=== PATIENT | female | born 1960 | race African-American/Black ===

== ENCOUNTER 2018-02-18 05:29 | Day surgery (SDC) | payer OTHER ==
[2018-02-17 16:38] VITALS: BMI 27.3
--- NOTE | 2018-02-18 08:14 | HP ---
History & Physical Update - Physical Physical: No Change - Assessment Assessment: No Change - Plan Plan: No Change
[2018-02-18] MEDS ORDERED: MIDAZOLAM HCL 2 MG/2 ML SINGLE DOSE VIAL ONE (09:02)
[2018-02-18] MEDS ORDERED: PROPOFOL 20 ML ONE (09:02)
[2018-02-18] MEDS ORDERED: oxyCODONE HCL 5 MG TABLET PO PRN ×3 (09:12→10:33)
[2018-02-18] MEDS ORDERED: ONDANSETRON 4 MG/2 ML VIAL IVPUSH PRN ×2 (09:12→10:33)
[2018-02-18] MEDS ORDERED: LACTATED RINGERS SOLUTION 1,000 ML IV SCH (09:15)
--- NOTE | 2018-02-18 09:19 | HP ---
Past Medical History - Primary Care Physician PCP:: Marin Miller - Admission Chief Complaint: fibroid uterus, submucos myoma, postmenopausal vaginal bleeding History of Present Illness: 57 yo f with hx of multiple myoma and PMB , sono possible submucos myoma, admitted for hysteroscopy D&C , possible submucos myomectomy, rba to procedure discussed History Source: Patient Limitations to Obtaining History: No Limitations - Past Medical History Cardiovascular: Yes: Hyperlipdemia - Past Surgical History Hx Myomectomy: No Hx Transabdominal Cerclage: No - Smoking History Smoking history: Never smoked - Alcohol/Substance Use Hx Alcohol Use: No - Social History History of Recent Travel: No Home Medications - Allergies Allergies/Adverse Reactions: Allergies Allergy/AdvReac Type Severity Reaction Status Date / Time No Known Allergies Allergy Verified 02/18/18 07:58 - Home Medications Home Medications: Ambulatory Orders Ascorbic Acid [Vitamin C] 1,000 mg PO DAILY 02/17/18 Simvastatin [Zocor -] 20 mg PO HS 02/17/18 Ibuprofen [Motrin -] 600 mg PO QID #28 tablet 02/18/18 Review of Systems - Review of Systems Constitutional: reports: No Symptoms Eyes: reports: No Symptoms HENT: reports: No Symptoms Neck: reports: No Symptoms Cardiovascular: reports: No Symptoms Respiratory: reports: No Symptoms Gastrointestinal: reports: No Symptoms Genitourinary: reports: No Symptoms Breasts: reports: No Symptoms Reported Musculoskeletal: reports: No Symptoms Integumentary: reports: No Symptoms Neurological: reports: No Symptoms Endocrine: reports: No Symptoms Hematology/Lymphatic: reports: No Symptoms Psychiatric: reports: No Symptoms Physical Exam-BAR[facility] [employer]ENER Vital Signs: Vital Signs Temperature 98.1 F 02/18/18 07:48 Pulse Rate 64 02/18/18 07:48 Respiratory Rate 18 02/18/18 07:48 Blood Pressure 133/92 02/18/18 07:48 O2 Sat by Pulse Oximetry (%) 100 02/18/18 07:50 Constitutional: Yes: Well Nourished, No Distress, Calm Eyes: Yes: WNL, Conjunctiva Clear, EOM Intact HENT: Yes: WNL, Atraumatic, Normocephalic Neck: Yes: WNL, Supple, Trachea Midline Cardiovascular: Yes: WNL, Regular Rate and Rhythm Respiratory: Yes: WNL, Regular, CTA Bilaterally Gastrointestinal: Yes: WNL ...Rectal Exam: Yes: WNL Renal/: Yes: WNL Pelvis: Yes: WNL External Genitalia: Yes: Normal Vaginal Exam: Yes: Normal Cervix: Yes: Normal Uterus: Yes: Enlarged Adnexa: Not Palpable: Left, Right Breast(s): Yes: WNL Musculoskeletal: Yes: WNL Extremities: Yes: WNL Edema: No Integumentary: Yes: WNL Neurological: Yes: WNL, Alert, Oriented ...Motor Strength: WNL Psychiatric: Yes: WNL, Alert, Oriented Problem List - Problem (1) Submucous myoma of uterus Code(s): D25.0 - SUBMUCOUS LEIOMYOMA OF UTERUS (2) Postmenopausal vaginal bleeding Code(s): N95.0 - POSTMENOPAUSAL BLEEDING Assessment/Plan hysteroscopy D&C , possible submucos myoma resection
[2018-02-18] MEDS ORDERED: IBUPROFEN 800 MG/8 ML IJ IVPB PRN (10:33)
[2018-02-18] MEDS ORDERED: IBUPROFEN 600 MG TABLET (FP) PO PRN (10:33)
[2018-02-18] MEDS ORDERED: ELECTROLYTE-148 SOLN 1,000 ML IV SCH (10:45)
[2018-02-18 11:26] VITALS: TEMP 98
[2018-02-18 13:07] VITALS: BP 142/75; PULSE 73
--- NOTE | 2018-02-19 17:05 | PATH ---
Surgical Pathology Report Patient Name: NICKY KOTHARI [facility]. Rec. #: [id number] /Age/Gender: 1960 (Age: 57) / F Account: [id number] Location: [facility] SURGICAL Taken: 02/18/2018 Received: 02/18/2018 Reported: 02/19/2018 Physicians: Marin Miller M.D. Specimen(s) Received A: CERVICAL POLYP B: ENDOMETRIAL POLYP Clinical History Postmenopausal bleeding Final Diagnosis A. CERVICAL POLYP, HYSTEROSCOPIC DILATION AND CURETTAGE AND REMOVAL: ABUNDANT MUCOID MATERIAL, SCANT ENDOCERVICAL TISSUE, AGGREGATES OF NEUTROPHILS, AND DEBRIS. B. ENDOMETRIAL POLYP, BIOPSY: ABUNDANT SQUAMOUS CERVICAL TISSUE, RARE ENDOCERVICAL GLANDS, AND FIBROUS STROMA ADMIXED WITH BLOOD. NO ENDOMETRIAL GLANDS IDENTIFIED. Electronically Signed Sowmya Ordonez M.D. Gross Description A. Received in formalin labeled "cervical polyp," is a 1.6 x 1.2 x 0.3 cm aggregate of villegas-red soft tissue fragments admixed with mucus. The formalin is filtered and the specimen is entirely submitted in one cassette. B. Received in formalin labeled "endometrial polyp," is a 0.5 x 0.4 x 0.1 cm aggregate of villegas red soft tissue fragments. The formalin is filtered and the specimen is entirely submitted in one cassette. 02/18/201802/18/2018
--- NOTE | 2018-02-26 16:04 | OP ---
DATE OF OPERATION: 02/18/2018 PREOPERATIVE DIAGNOSIS: Postmenopausal bleeding, fibroid uterus. POSTOPERATIVE DIAGNOSIS: Postmenopausal bleeding, fibroid uterus. PROCEDURE PERFORMED: Removal of endometrial polyp, hysteroscopy, dilatation and curettage. SURGEON: Marin Miller MD ANESTHESIA: General. ESTIMATED BLOOD LOSS: Minimal. DESCRIPTION OF PROCEDURE: The patient was taken to the operating room and had adequate general anesthesia in the dorsal lithotomy position. Examination under anesthesia revealed the external genitalia to be normal. The uterus was retroverted, with multiple myomas. The adnexa were not palpable. The cervix was stenotic. The anterior lip of the cervix was grasped with a single-tooth tenaculum. The endometrial polyp with mucoid material was removed from the os. The os was stenotic and difficult to visualize the ostium. The cervical os was probed several times to find the endocervix. Unable to find the endocervical canal. Then, with the hysteroscope, direct visualization, tried to get inside the uterus. The hysteroscope could not be advanced more than 4 cm. The tubal ostia were not visualized and the fundus was not well seen because of difficulties with entering into the uterine cavity. At this time the hysteroscopy procedure was terminated. Then endometrial sampling and curetting were done. Minimal tissue was obtained. The patient tolerated the procedure well, and left the OR in good condition. MARIN MILLER M.D. /[id number]
== END 2018-02-18 13:08 | disposition home or self-care (01) ==
LOC: JASU-SURG 05:29
PROVIDERS: ATTEND Obstetrics & Gynecology
PROC: 0UB98ZX Excision of Uterus, Via Natural or Artificial Opening Endoscopic, Diagnostic (ICD-10-PCS; principal; 2018-02-18 09:00)
PROC: 0UDB7ZX Extraction of Endometrium, Via Natural or Artificial Opening, Diagnostic (ICD-10-PCS; 2018-02-18 09:00)
DX: N95.0 Postmenopausal bleeding (principal); D25.0 Submucous leiomyoma of uterus; N84.0 Polyp of corpus uteri
CPT/HCPCS: 88305-TC; 94760

== ENCOUNTER 2019-04-14 10:49 | Day surgery (SDC) | payer OTHER ==
[2019-04-13 15:21] VITALS: BMI 27.8
[2019-04-14] MEDS ORDERED: PROPOFOL 20 ML ONE ×2 (12:53→13:24)
[2019-04-14] MEDS ORDERED: KETOROLAC TROMETHAMINE 30 MG/1 ML VIAL ONE (12:53)
[2019-04-14] MEDS ORDERED: DEXAMETHASONE SOD PHOSPHATE 4 MG/1 ML VIAL ONE ×2 (12:53→12:56)
[2019-04-14] MEDS ORDERED: MIDAZOLAM HCL 2 MG/2 ML SINGLE DOSE VIAL ONE (12:53)
[2019-04-14] MEDS ORDERED: LIDOCAINE 1%-EPI 1:100,000 30 ML MDV IJ ONE (13:14)
[2019-04-14] MEDS ORDERED: LIDOCAINE HCL 1%, 10 MG/ML (20ML VIAL) ONE (13:24)
[2019-04-14] MEDS ORDERED: ceFAZolin SODIUM 1 GM VIAL IVPB ONE (13:30)
[2019-04-14] MEDS ORDERED: LIDOCAINE HCL 1%, 10 MG/ML (20ML VIAL) INF ONE ×2 (13:33)
[2019-04-14 16:25] VITALS: BP 127/65; PULSE 71; TEMP 98.2
--- NOTE | 2019-04-14 18:15 | OP ---
DATE OF OPERATION: 04/14/2019 PREOPERATIVE DIAGNOSIS: Atypical glandular cells of undetermined significance on Pap smear and stenotic cervical os. POSTOPERATIVE DIAGNOSIS: Atypical glandular cells of undetermined significance on Pap smear and stenotic cervical os. PROCEDURE: Dilation and curettage, hysteroscopy. SURGEON: Love Martinez MD ANESTHESIA: Moderate sedation and local. ESTIMATED BLOOD LOSS: 20 mL. COMPLICATIONS: None. INDICATIONS: This is a 58-year-old with history of atypical glandular cells on Pap smear. Colposcopy biopsies were negative. HPV was negative. The os on exam was noted to be markedly stenotic, and she had adhesions in the anterior vaginal apex with a very flush cervix. Patient was counseled regarding surgical management for endometrial sampling. Risks, benefits, indications, alternatives were discussed with the patient. All questions were answered. Informed consent was signed. FINDINGS: Atrophic vagina. Cervix entirely flush with the vagina, and cervical os not easily visible. There were adhesions at the top of the vagina/cervix. Uterus approximately 6 weeks' size. DESCRIPTION OF PROCEDURE: The patient was taken to the operating room. Placed in the dorsal supine position. Moderate sedation was achieved. She was placed in the dorsal lithotomy position in Rosalio stirrups and was prepped and draped in normal sterile fashion. Speculum was placed in the vagina. Cervix was infiltrated with 10 mL of 1% lidocaine at 12, 4, and 7 o'clock. Cervix was grasped anteriorly with a single-tooth tenaculum, but due to the very markedly flush cervix, this was very difficult; therefore, it was held at approximately 9 o'clock on the vagina to help barbara the cervix. The cervix was puckered in and very flush, in fact, os could not be visualized, but with gentle probing with the sound, an opening was able to be seen and palpated. Using the dilators, we were able to dilate to only approximately 4 cm. The 30-degree hysteroscope was advanced while instilling normal saline. We could see that we were in the endocervical cavity but could not advance into the endometrial cavity. At this point, the hysteroscope was withdrawn, and gentle endocervical/endometrial curettings were obtained; however, I did not feel that we were in the endometrial cavity. Likely, the specimen was just the endocervical curetting. The hysteroscope was removed. Silver nitrate was applied to the cervix/vagina where the single-tooth tenaculum was applied. Excellent hemostasis was seen. All instruments were removed from the patient's vagina. Sponge and instrument counts were correct x2. The patient was awakened and transferred in a stable condition to the PACU. Love Martinez M.D. VALERIA/[id number]
--- NOTE | 2019-04-16 17:20 | PATH ---
Surgical Pathology Report Patient Name: NICKY KOTHARI [facility]. Rec. #: [id number] /Age/Gender: 1960 (Age: 58) / F Account: [id number] Location: [facility] SURGICAL Taken: 04/14/2019 Received: 04/15/2019 Reported: 04/16/2019 Physicians: Love Martinez MD Specimen(s) Received ENDOCERVICAL CURETTINGS AND ENDOMETRIAL CURETTINGS Clinical History Atypical glandular cells on Pap smear, stenotic cervix Final Diagnosis ENDOCERVICAL/ENDOMETRIAL CURETTINGS: MINUTE SQUAMOUS EPITHELIUM AND ENDOCERVICAL CELLS. NO ENDOMETRIAL TISSUE PRESENT. Comment: Multiple serial H&E stained levels have been examined. Electronically Signed Deny Daniel M.D. Gross Description Received in formalin labeled "endocervical/endometrial curettings," is a 0.1 x 0.1 x 0.1 cm aggregate of villegas-brown soft tissue fragments. The formalin is filtered and the specimen is entirely submitted in one cassette. /04/15/2019 saudi/04/15/2019
== END 2019-04-14 16:30 | disposition home or self-care (01) ==
LOC: JASU-SURG 10:49
PROVIDERS: ATTEND Obstetrics & Gynecology Gynecologic Oncology
PROC: 0UDB7ZX Extraction of Endometrium, Via Natural or Artificial Opening, Diagnostic (ICD-10-PCS; principal; 2019-04-14 13:20)
PROC: 0UJD8ZZ Inspection of Uterus and Cervix, Via Natural or Artificial Opening Endoscopic (ICD-10-PCS; 2019-04-14 13:20)
DX: R87.618 Other abnormal cytological findings on specimens from cervix uteri (principal)
CPT/HCPCS: 86850; 86900; 86901; 94760

== ENCOUNTER 2020-05-10 04:18 | Inpatient (IN) | payer OTHER ==
[2020-05-09 08:52] VITALS: BMI 27.4
[2020-05-10] MEDS ORDERED: MIDAZOLAM HCL 2 MG/2 ML SINGLE DOSE VIAL ONE ×2 (08:03)
[2020-05-10] MEDS ORDERED: DEXAMETHASONE SOD PHOSPHATE 4 MG/1 ML VIAL ONE (08:57)
[2020-05-10] MEDS ORDERED: fentaNYL CITRATE 250 MCG/5 ML VIAL ONE (08:57)
[2020-05-10] MEDS ORDERED: ONDANSETRON 4 MG/2 ML VIAL ONE (08:57)
[2020-05-10] MEDS ORDERED: LIDOCAINE HCL/PF 2% SDV 5ML VIAL ONE (08:57)
[2020-05-10] MEDS ORDERED: PROPOFOL 20 ML ONE (08:58)
[2020-05-10] MEDS ORDERED: ROCURONIUM BROMIDE 50 MG/5 ML SYRINGE ONE (08:58)
[2020-05-10] MEDS ORDERED: ceFAZolin SODIUM 1 GM VIAL ONE (09:29)
[2020-05-10] MEDS ORDERED: ceFAZolin SODIUM 1 GM VIAL IVPB ONE (09:31)
[2020-05-10] MEDS ORDERED: HYDROmorphone HCl 2 MG/ML VIAL ONE (09:58)
[2020-05-10] MEDS ORDERED: KETOROLAC TROMETHAMINE 30 MG/1 ML VIAL ONE (10:52)
[2020-05-10] MEDS ORDERED: NEOSTIGMINE METHYLSULFATE 0.5 MG/1 ML - 10 ML MDV ONE (10:52)
[2020-05-10] MEDS ORDERED: GLYCOPYRROLATE 0.2 MG/1 ML VIAL ONE (10:52)
[2020-05-10] MEDS ORDERED: IBUPROFEN 800 MG/8 ML IJ IVPB PRN (11:39)
[2020-05-10] MEDS ORDERED: IBUPROFEN 600 MG TABLET (FP) PO PRN (11:39)
[2020-05-10] MEDS ORDERED: oxyCODONE HCL 5 MG TABLET PO PRN ×2 (11:39→11:43)
[2020-05-10] MEDS ORDERED: ONDANSETRON 4 MG/2 ML VIAL IVPUSH PRN (11:39)
[2020-05-10] MEDS ORDERED: ACETAMINOPHEN 325 MG TABLET (FP) PO PRN (11:42)
[2020-05-10] MEDS ORDERED: LACTATED RINGERS SOLUTION 1,000 ML IV SCH (12:00)
[2020-05-10] MEDS: ELECTROLYTE-148 SOLN 1,000 ML IV SCH (17:33)
[2020-05-10] MEDS: CEFAZOLIN 2 GM/D5W 2 GM/50 ML ML IVPB SCH (17:41)
[2020-05-11] MEDS: CEFAZOLIN 2 GM/D5W 2 GM/50 ML ML IVPB SCH ×2 (01:29→09:01)
[2020-05-11 07:31] LABS: HEMATOCRIT 37.3 % (32.4-45.2); HEMOGLOBIN 12.4 GM/dL (10.7-15.3); MCH 27.4 pg (25.7-33.7); MCHC 33.3 g/dl (32.0-36.0); MEAN CELL VOLUME 82.5 fl (80-96); MEAN PLT VOLUME 10.3 fl (7.5-11.1); PLATELET COUNT 201 K/MM3 (134-434); RBC 4.52 M/mm3 (3.60-5.2); RDW 13.7 % (11.6-15.6); WHITE BLOOD COUNT 9.1 K/mm3 (4.0-10.0)
[2020-05-11] MEDS ORDERED: BISACODYL 5 MG TABLET.DR (FP) PO ONE (07:32)
[2020-05-11] MEDS ORDERED: SIMETHICONE 80 MG TAB.CHEW (FP) PO PRN (07:33)
[2020-05-11 07:43] LABS: POTASSIUM 4.1 mmol/L (3.5-5.1)
[2020-05-11 07:46] LABS: CALCIUM 8.4 mg/dL (8.5-10.1)
[2020-05-11 07:50] LABS: CREATININE 0.7 mg/dL (0.55-1.3)
[2020-05-11] MEDS ORDERED: ENOXAPARIN NA (PORCINE) 40 MG/0.4 ML DISP.SYRIN SQ SCH (10:00)
[2020-05-11] MEDS: ELECTROLYTE-148 SOLN 1,000 ML IV SCH (14:00)
[2020-05-11 14:55] VITALS: BP 124/62; PULSE 81; TEMP 99
== END 2020-05-11 15:41 | disposition home or self-care (01) | DRG 743 ==
LOC: J2C 04:18 → EDSTATUS 09:00 → J4W 16:39
PROVIDERS: ADMIT Obstetrics & Gynecology; ATTEND Obstetrics & Gynecology
PROC: 0UT70ZZ Resection of Bilateral Fallopian Tubes, Open Approach (ICD-10-PCS; 2020-05-10)
PROC: 0UT20ZZ Resection of Bilateral Ovaries, Open Approach (ICD-10-PCS; 2020-05-10)
PROC: 0UT90ZZ Resection of Uterus, Open Approach (ICD-10-PCS; principal; 2020-05-10 09:00)
DX: D25.9 Leiomyoma of uterus, unspecified (principal); E78.5 Hyperlipidemia, unspecified; N88.2 Stricture and stenosis of cervix uteri; N84.1 Polyp of cervix uteri
CPT/HCPCS: 36415; 80048; 85027; 86850; 86900; 86901; 86922; 94010; 94660; 94760

== ENCOUNTER 2021-04-28 07:56 | Emergency (ER) | payer OTHER ==
[2021-04-28 08:11] VITALS: BP 145/88; PULSE 61; TEMP 97.8; BMI 26.6
[2021-04-28] MEDS ORDERED: ACETAMINOPHEN 325 MG TABLET (FP) PO ONE (08:31)
[2021-04-28] MEDS ORDERED: LIDOCAINE 5% TOPICAL PATCH TP ONE (08:31)
[2021-04-28] MEDS ORDERED: ACETAMINOPHEN 325 MG TABLET (FP) ONE (08:40)
[2021-04-28] MEDS ORDERED: LIDOCAINE 5% TOPICAL PATCH ONE (08:42)
[2021-04-28] MEDS ORDERED: LIDOCAINE PATCH REMOVAL MC SCH (22:00)
== END 2021-04-28 09:21 | disposition home or self-care (01) ==
LOC: JER 07:56 → JERFT 07:56
DX: S49.92XA Unspecified injury of left shoulder and upper arm, initial encounter (principal); X50.0XXA Overexertion from strenuous movement or load, initial encounter; Y93.F2 Activity, caregiving, lifting
CPT/HCPCS: 73030-TC-LT-FY; 99283-25

== ENCOUNTER 2021-10-21 00:26 | Emergency (ER) | payer OTHER ==
[2021-10-21 00:40] VITALS: BP 166/79; PULSE 64; RESP 20; TEMP 97.6; BMI 28.3
[2021-10-21] MEDS ORDERED: METHOCARBAMOL 500 MG TABLET PO ONE (01:24)
[2021-10-21] MEDS ORDERED: IBUPROFEN 600 MG TABLET (FP) PO ONE ×2 (01:24→01:39)
[2021-10-21] MEDS ORDERED: LIDOCAINE 5% TOPICAL PATCH TP ONE (01:24)
[2021-10-21] MEDS ORDERED: ACETAMINOPHEN 325 MG TABLET (FP) PO ONE (01:25)
[2021-10-21] MEDS ORDERED: LIDOCAINE 5% TOPICAL PATCH ONE (01:39)
[2021-10-21] MEDS ORDERED: ACETAMINOPHEN 325 MG TABLET (FP) ONE (01:39)
[2021-10-21] MEDS ORDERED: METHOCARBAMOL 500 MG TABLET ONE (01:39)
[2021-10-21] MEDS ORDERED: LIDOCAINE PATCH REMOVAL MC SCH (22:00)
== END 2021-10-21 01:58 | disposition home or self-care (01) ==
LOC: JER 00:26
DX: M54.2 Cervicalgia (principal)
CPT/HCPCS: 99283-25